=== PATIENT | female | born 2000 | race Caucasian/White ===

== ENCOUNTER → 2021-02-05 13:45 | Outpatient (CLI) | payer OTHER, SELFPAY ==
--- NOTE | ~2021-02-05 | US_ITS ---
US OB transvaginal DATE: 02/05/2021 14:54 INDICATION: Estimated gestational age determination TECHNIQUE: Real-time imaging and Doppler analysis COMPARISON: None FINDINGS: The uterus measures 9.7 times height, 5.1 cm anteroposterior and 6.7 cm transverse dimensio n. A normally shaped intrauterine gestational sac is identified with identification of yolk sac, feta l pole and cardiac motion, heart rate 164 bpm. Right ovary measures 3 x 2.8 x 2.2 cm. Left ovary measures 2.8 x 1.9 x 2.3 cm. No pelvic mass lesion or abnormal pelvic fluid collection is detected. [place]-rump length measurement is 1.71 cm with estimated gestational age of 8 weeks 1 day +/- 5 days; YENNIFER of 09/16/2021. IMPRESSION: Estimated gestational age of 8 weeks 1 day +/- 5 days; YENNIFER: 09/16/2021 Reviewed, dictated and finalized at [facility]. Reviewed, dictated and finalized at location A. IMPRESSION: Estimated gestational age of 8 weeks 1 day +/- 5 days; YENNIFER: 09/17/19 22
== END ==
PROVIDERS: PCP Physician Assistant; Visit Provider Physician Assistant
DX: N91.2 Amenorrhea, unspecified (principal); Z3A.08 8 weeks gestation of pregnancy
CPT/HCPCS: 76817

== ENCOUNTER → 2021-04-14 09:39 | Outpatient (CLI) | payer OTHER, SELFPAY ==
--- NOTE | ~2021-04-14 | US_ITS ---
EXAMINATION: US OB /maternal detail EXAM DATE: 04/14/2021 10:26 INDICATION: Anatomy 2nd trimester. TECHNIQUE: Pelvic obstetrical transabdominal sonogram was performed by a technologist. There are mu ltiple grayscale and Doppler images available for interpretation. Comparison is made to prior examina tion from 02/05/2021. FINDINGS: There is a single fetus identified in breech presentation with a heart rate of 146 beats p er minute. The placenta is located in the anterior position. There is no sonographic evidence of ret roplacental hemorrhage identified. There is subjectively expected amount of amniotic fluid. Placenta l margin to internal cervical os distance is 5.8 cm. BIOMETRIC DATA: Biparietal diameter (BPD): 4.1 cm ----------------> 18 weeks 4 days. Head circumference (HC): 15.4 cm ----------------> 18 weeks 2 days. Abdominal circumference (AC): 13.2 cm ----------> 18 weeks 5 days. Femur length (FL): 2.5 cm --------------------------> 17 weeks 4 days. These measurements are concordant. HC/AC ratio is 1.16 (The 5th -- 95th percentile range is 1.08-1.27. Estimated weight is 228 g +/- 34 g. This is the 66th percentile when the currently reported cl inical gestation age 17 weeks 6 days, clinical estimated date of delivery (YENNIFER-OPE) 09/16/2021 is used . estimated gestational age based on measurements from this exam is 18 weeks 2 days, with an es timated date of delivery (YENNIFER-AUA) 09/13. ANATOMIC SURVEY: The following anatomy is identified and is sonographically normal in appearance: Cerebral ventricles Cavum septum pellucidum Cerebellum Cisterna magna Nuchal fold CTL-spine Four-chamber heart Cardiac outflow tracts Diaphragm Stomach Kidneys Bladder Three-vessel cord Cord insertion Extremities Nose/lips IMPRESSION: 1. Single fetus in breech presentation with heart rate 146 beats per minute. 2. Estimated weight of 228 grams, 66th percentile using the currently reported clinical gestat ion age of 17 weeks 6 days, YENNIFER(OPE) 09/16. 3. Normal anatomic survey. Reviewed, dictated and finalized at location A. MACHINE OPERATOR IMPRESSION: 1. Single fetus in breech presentation with heart rate 146 beats per minute. 2. Estimated weight of 228 grams, 66th percentile using the currently re ported clinical gestation age of 17 weeks 6 days, YENNIFER(OPE) 09/16. 3. Normal anatomic survey.
== END ==
PROVIDERS: Visit Provider Obstetrics & Gynecology Gynecology
DX: Z34.92 Encounter for supervision of normal pregnancy, unspecified, second trimester (principal); Z3A.18 18 weeks gestation of pregnancy
CPT/HCPCS: 76805

== ENCOUNTER 2021-06-23 11:15 | Observation (INO) | payer OTHER, SELFPAY ==
[2021-06-23 11:41] VITALS: BP 125/83; PULSE 104
[2021-06-23 12:00] VITALS: TEMP 36.6; BMI 33.5
[2021-06-23 12:01] VITALS: BP 118/77; PULSE 88
[2021-06-23 12:05] LABS: Add Urine Microscopic? YES; Appearance Urine Cloudy (Clear); Bacteria Urine Trace /hpf; Bilirubin Urine Negative (Negative); Blood Urine 1+ (Negative); Color Urine Yellow (Yellow); Glucose Urine UA Negative (Negative); Ketones Urine Negative (Negative); Leukocyte Esterase Ur 3+ LEU/UL (NEGATIVE); Mucus Urine Rare /lpf; Nitrate Urine Negative (Negative); Protein Urine Negative (Negative); Specific Grav Ur 1.012 (1.001-1.035); Squamous Epithelial Cell Urine Many /hpf (Few); Urobilinogen Urine Negative mg/dL (<2.0); WBC Urine >75 /hpf (0-3)
--- NOTE | 2021-06-29 09:32 | PM.OBTRLD ---
OB - Triage/Final Diagnosis Visit Information Reason for evaluation: other (Vaginal pressure) Comments/Additional reasons for admission: I have assessed the risk for this patient, Kisha Mcallister, and determined that she would benefit from observation care. Evaluation Laboratory results: Laboratory Tests 06/23/21 11:42 Urine Color Yellow Urine Appearance Cloudy H Urine pH 6.0 Ur Specific [place] 1.012 Urine Protein Negative Urine Glucose (UA) Negative Urine Ketones Negative Ur Blood (Man) 1+ H Urine Nitrate Negative Urine Bilirubin Negative Urine Urobilinogen Negative Ur Leukocyte Esterase 3+ H Urine RBC 6-10 H Urine WBC >75 H Ur Squamous Epith Cells Many H Urine Bacteria Trace Urine Mucus Rare
== END 2021-06-23 12:35 | disposition home or self-care (01) ==
PROVIDERS: Admitting Provider Obstetrics & Gynecology Gynecology; PCP Physician Assistant; Visit Provider Obstetrics & Gynecology Gynecology
DX: O26.893 Other specified pregnancy related conditions, third trimester (principal); R10.2 Pelvic and perineal pain; Z3A.27 27 weeks gestation of pregnancy
CPT/HCPCS: 81001; 87086; G0378; G0379

== ENCOUNTER 2021-08-06 13:50 | Observation (INO) | payer OTHER, SELFPAY ==
[2021-08-06 14:12] VITALS: BP 117/71; PULSE 96; TEMP 37.3
[2021-08-06 14:16] VITALS: BP 126/86; PULSE 94
[2021-08-06 14:31] VITALS: BP 116/75; PULSE 77
[2021-08-06 14:46] VITALS: BP 120/78; PULSE 86
--- NOTE | 2021-08-06 14:52 | OBADM ---
This patient, Kisha Mcallister, admitted to the OB room OB Post 116 for observation. Patient/family oriented to hospital policies and general routines including ID bracelet, bed and alarms, visiting hours, pain management, procedures, bathroom and other care routines, personal items, smoking policy, room service/diet, and visiting hours. Patient/Family are encouraged to report perceived risks to care and to ask questions if they do not understand what they are told or what they should do. Pt. reports ctxns and vaginal discharge, states she has had cultures taken in MD office earlier this week.
--- NOTE | 2021-08-06 15:25 | PC.NURSE ---
5750--Dr. Fang on unit, strip reviewed and report re: pt's reports of ctxns and back pain and discharge. Pt. stated that vaginal cultures were taken in the office earlier this week, and no active discharge noted upon exam. Orders to DC home.
--- NOTE | 2021-08-17 07:51 | PM.OBTRLD ---
OB - Triage/Final Diagnosis Visit Information Reason for evaluation: threatened labor Comments/Additional reasons for admission: I have assessed the risk for this patient, Kisha Mcallister, and determined that she would benefit from observation care.
== END 2021-08-06 15:07 | disposition home or self-care (01) ==
PROVIDERS: Admitting Provider Obstetrics & Gynecology Gynecology; PCP Physician Assistant; Visit Provider Obstetrics & Gynecology Gynecology
DX: O47.03 False labor before 37 completed weeks of gestation, third trimester (principal); Z3A.34 34 weeks gestation of pregnancy
CPT/HCPCS: G0378; G0379

== ENCOUNTER 2021-08-31 12:21 | Outpatient (RCR) | payer OTHER, SELFPAY ==
[2021-07-23 09:41] VITALS: BP 108/69; PULSE 101
[2021-07-23 09:57] VITALS: BP 108/69; PULSE 87
[2021-07-27 11:50] VITALS: BP 106/67; PULSE 97
[2021-07-30 09:20] VITALS: PULSE 86
[2021-08-03 16:00] VITALS: BP 115/69; PULSE 99
[2021-08-10 17:32] VITALS: BP 121/78; PULSE 106
[2021-08-13 10:11] VITALS: BP 117/77; PULSE 89
[2021-08-17 13:16] VITALS: BP 117/77; PULSE 92
[2021-08-20 14:18] VITALS: BP 118/82; PULSE 100
[2021-08-24 13:16] VITALS: BP 115/80
[2021-08-27 17:26] VITALS: BP 124/79
--- NOTE | ~2021-08-31 | US_ITS ---
EXAMINATION: US OB follow up DATE: 08/17/2021 12:53 INDICATION: Gestational diabetes, third trimester TECHNIQUE: Real-time ultrasound of the pelvis was performed. The interpreting radiologist was not pre sent for the study. COMPARISON: None. FINDINGS: There is a single living fetus in vertex presentation. The placenta is anterior. Multiple v enous lakes are noted within the placenta. cardiac activity and movement are noted. heart rate is 136 beats per minute (bpm). The amniotic fluid index is 13.2 cm which is normal (allen l range: 7.7 cm to 24.9 cm). The following biometric data were obtained: Biparietal diameter (BPD): 9.3 cm; head circumference (HC): 34.8 cm; abdominal circumference (AC): 35 .1 cm; femur length (FL): 7.5 cm. These measurements are concordant. Estimated weight is 3635 g +/- 545 g, which correlates with the >97th percentile when 09/16/2021 is used as estimated date of delivery. As single measurements, these parameters are each equal to the following estimated gestational ages w ith ranges of +/- 2 standard deviations: BPD: 37 weeks 6 days +/- 3 weeks 1 days. HC: 40 weeks 3 days +/- 2 weeks 5 days. AC: 39 weeks 0 days +/- 3 weeks 0 days. FL: 38 weeks 4 days +/- 3 weeks 1 days. estimated gestational age based solely on measurements from this exam is 39 weeks 0 days +/- 2 weeks 5 days. IMPRESSION: 1. Single living fetus in vertex presentation. 2. Normal amniotic fluid index. 3. Estimated weight is 3635 g +/- 545 g, which correlates with the >97th percentile when 022 is used as estimated date of delivery. Reviewed, dictated and finalized at location A. IMPRESSION: 1. Single living fetus in vertex presentation. 2. Normal amniotic fluid index. 3. Estimated weight is 3635 g +/- 545 g, which correlates with the >97th percentile when 09/16/2021 is used as estimated date of delivery.
[2021-08-31 13:01] VITALS: BP 125/84; PULSE 109
== END 2021-09-11 10:20 | disposition home or self-care (01) ==
LOC: ANHOBOP 12:21
PROVIDERS: PCP Physician Assistant; Visit Provider Obstetrics & Gynecology Gynecology
DX: O24.419 Gestational diabetes mellitus in pregnancy, unspecified control (principal); Z3A.32 32 weeks gestation of pregnancy; Z3A.33 33 weeks gestation of pregnancy; Z3A.34 34 weeks gestation of pregnancy; Z3A.35 35 weeks gestation of pregnancy; Z3A.36 36 weeks gestation of pregnancy; Z3A.37 37 weeks gestation of pregnancy
CPT/HCPCS: 59025; 76816

== ENCOUNTER 2021-09-01 12:42 | Inpatient (IN) | payer OTHER, SELFPAY ==
[2021-09-01] VITALS (121 sets, daily range): BP systolic 95–165; BP diastolic 49–114; PULSE 66–150; TEMP 36.3–36.6; O2SAT 94–100; BMI 35.2
[2021-09-01] MEDS: ACETAMINOPHEN 500 MG TABLET 1000 MG PO (11:51)
[2021-09-01 11:53] LABS: Basophils Percent Auto 0.4 % (0.2-1.2); Eosinophils Absolute Auto 0.1 K/mm3 (0-0.3); Eosinophils Percent Auto 0.8 % (0-4.4); Hematocrit 34.2 % (37.0-47.0); Hemoglobin 10.9 g/dL (12.0-15.0); Immature Granulocyte Absolute 0.07 K/mm3 (0.00-0.031); Immature Granulocyte Percent A 0.6 % (0-0.5); Lymphocytes Absolute Auto 1.58 K/mm3 (0.9-3.2); Lymphocytes Percent Auto 14.1 % (18.3-44.2); Mean Corpuscular HGB Conc 31.9 g/dl (32-36); Mean Corpuscular Volume 87.9 fl (80-100); Mean Platelet Volume 10.8 fl (7.4-10.4); Monocytes Absolute Auto 0.6 K/mm3 (0.1-0.6); Monocytes Percent Auto 4.9 % (2.6-8.5); Neutrophils Absolute Auto 8.9 K/mm3 (1.3-6.7); Neutrophils Percent Auto 79.2 % (45.5-73.1); Platelet Count Result 204 k/mm3 (150-375); Red Blood Count 3.89 M/mm3 (4.2-5.4); Red Cell Distribution Width 14.2 % (11.5-14.5); White Blood Count 11.2 K/mm3 (4.5-10.0)
[2021-09-01 12:00] LABS: Creatinine Urine 113.5 mg/dL; Total Protein Urine Random 15 mg/dL; Ur Ttl Prot Creatinine Ratio 0.13 mg/mg (0-0.20)
[2021-09-01 12:03] LABS: Alanine Aminotransferase 13 U/L (6-35); Albumin Level 3.6 g/dL (3.5-5.1); Alkaline Phosphatase 159 U/L (38-126); Anion Gap 5 mmol/L (8-16); Aspartate Amino Transferase 19 U/L (14-36); Bilirubin,Total 0.2 mg/dL (0.2-1.3); Blood Urea Nitrogen 6 mg/dL (7-17); Calcium 8.5 mg/dL (8.4-10.2); Carbon Dioxide 19 mmol/L (22-30); Chloride 110 mmol/L (98-107); Estimated Glomerular Filt Rate > 60; Glucose 107 mg/dL (65-110); Potassium 3.9 mmol/L (3.4-5.0); Sodium 134 mmol/L (137-145); Uric Acid 5.3 mg/dL (2.5-7.5)
[2021-09-01 12:31] LABS: Appearance Urine Slightly Cloudy (Clear); Bilirubin Urine Negative (Negative); Blood Urine 2+ (Negative); Color Urine Yellow (Yellow); Glucose Urine UA Negative (Negative); Ketones Urine Negative (Negative); Leukocyte Esterase Ur Trace LEU/UL (NEGATIVE); Nitrate Urine Negative (Negative); Protein Urine Trace mg/dL (Negative); Urobilinogen Urine 0.2 mg/dL (<2.0)
--- NOTE | 2021-09-01 12:42 | LDADM ---
This patient, Kisha Mcallister, was admitted to Labor/Delivery/Recovery 103 on 09/01/21 at 12:42. Plans for labor, pain management and were discussed with patient. Patient/family oriented to hospital policies and general routines including ID bracelet, bed and alarms, visiting hours, pain management, procedures, bathroom and other care routines, personal items, smoking policy, room service/diet and guest tray routines, infant security routines, and visiting hours. Patient/Family are encouraged to report perceived risks to care and to ask questions if they do not understand what they are told or what they should do. See OBIX for further documentation.
--- NOTE | 2021-09-01 12:42 | PC.NURSE ---
Labs and VS called to [facility]. Orders received for pt to stay and be induced for Gestational Hypertension. Orders received for pt to be started on Cervidil and start on Pitocin in the AM.
[2021-09-01 12:48] LABS: Mucus Urine Rare /lpf; RBC Urine >75 /hpf (0-2); Squamous Epithelial Cell Urine Few /hpf (Few)
[2021-09-01 12:49] LABS: Add Urine Microscopic? YES
[2021-09-01] MEDS: DINOPROSTONE 10 MG VAG INSERT VAGINAL (13:55)
[2021-09-01] MEDS: ONDANSETRON INJ 4 MG/2 ML VIAL IV PUSH ×2 (14:32→21:01)
[2021-09-01] MEDS: LACTATED RINGERS 1,000 ML 125 ML IV CONT ×2 (14:44→17:38)
[2021-09-01] MEDS: fentaNYL CITRATE INJ (*CRX) 100 MCG/2 ML VIAL 50 MCG IV PUSH (15:22)
[2021-09-01 16:09] LABS: Glucose Point of Care 73 mg/dl (65-105)
--- NOTE | 2021-09-01 17:00 | WPDANESEPPF ---
Anes - Initial Pre Proc Eval Procedure: labor epidural Date/Time: 09/01/21 17:00 Surgeon: Rylie Fang MD Pre Op Diagnosis: labor pain Pre Op Diagnosis: PIH Labs Patient Data Age: 21 Gender: F Height: 1.75 m Weight: 108 kg Last Vital Signs Temp 36.3 C L 09/01/21 13:30 Pulse 106 H 09/01/21 16:00 BP 141/102 H 09/01/21 16:00 Allergies Allergy/AdvReac Type Severity Reaction Status Date / Time No Known Allergies Allergy Verified 07/23/21 09:43 Home Medications Medication Instructions Recorded Confirmed Type aspirin 81 mg capsule 81 mg PO DAILY 07/23/21 09/01/21 History ergocalciferol (vitamin D2) 1,250 50,000 unit PO WEEKLY 07/23/21 09/01/21 History mcg (50,000 unit) capsule insulin NPH isoph U-100 human 100 49 unit subcut HS 07/23/21 09/01/21 History unit/mL (3 mL) subcutaneous pen (Novolin N Flexpen) insulin lispro 100 unit/mL 5 unit subcut QACBREAK 07/23/21 09/01/21 History subcutaneous pen omeprazole 40 mg capsule,delayed 40 mg PO HS 07/23/21 09/01/21 History release vit no.95-ferrous 1 tablet PO DAILY 07/23/21 09/01/21 History fumarate 28 mg-folic acid 800 mcg tablet () Laboratory Tests 09/01/21 09/01/21 09/01/21 11:38 11:38 11:38 WBC 11.2 K/mm3 H K/mm3 (4.5-10.0) RBC 3.89 M/mm3 L M/mm3 (4.2-5.4) Hgb 10.9 g/dL L g/dL (12.0-15.0) Hct 34.2 % L % (37.0-47.0) MCV 87.9 fl fl (80-100) MCH 28.0 pg pg (26-34) MCHC 31.9 g/dl L g/dl (32-36) RDW 14.2 % % (11.5-14.5) Plt Count 204 k/mm3 k/mm3 (150-375) MPV 10.8 fl H fl (7.4-10.4) Immature Gran % (Auto) 0.6 % H % (0-0.5) Neut % (Auto) 79.2 % H % (45.5-73.1) Lymph % (Auto) 14.1 % L % (18.3-44.2) [place] % (Auto) 4.9 % % (2.6-8.5) Eos % (Auto) 0.8 % % (0-4.4) Baso % (Auto) 0.4 % % (0.2-1.2) Lymph # (Auto) 1.58 K/mm3 K/mm3 (0.9-3.2) [place] # (Auto) 0.6 K/mm3 K/mm3 (0.1-0.6) Eos # (Auto) 0.1 K/mm3 K/mm3 (0-0.3) Baso # (Auto) 0.0 K/mm3 K/mm3 (0.0-0.1) Abs Immat Gran (auto) 0.07 K/mm3 H K/mm3 (0.00-0.031) Absolute Neuts (auto) 8.9 K/mm3 H K/mm3 (1.3-6.7) Absolute Nucleated RBC 0.0 K/mm3 K/mm3 (0.0-0.012) Nucleated RBC % 0.0 % % (0.0-0.2) Sodium Potassium Chloride Carbon Dioxide Anion Gap BUN Creatinine Estim Creat Clear Calc Estimated GFR Glucose POC Capillary Glucose Uric Acid Calcium Total Bilirubin AST ALT Alkaline Phosphatase Total Protein Albumin Urine Color Yellow (Yellow) Urine Appearance Slightly cloudy (Clear) Urine pH 6.0 (5.0-9.0) Ur Specific [place] 1.020 (1.001-1.035) Urine Protein Trace mg/dL mg/dL (Negative) Urine Glucose (UA) Negative mg/dL mg/dL (Negative) Urine Ketones Negative mg/dL mg/dL (Negative) Ur Blood (Man) 2+ H (Negative) Urine Nitrate Negative (Negative) Urine Bilirubin Negative (Negative) Urine Urobilinogen 0.2 mg/dL mg/dL (<2.0) Ur Leukocyte Esterase Trace BRIAN/UL H BRIAN/UL (NEGATIVE) Urine RBC >75 /hpf H /hpf (0-2) Urine WBC 7-9 /hpf H /hpf (0-3) Ur Squamous Epith Cells Few /hpf /hpf (Few) Urine Mucus Rare /lpf /lpf U Random Total Protein 15 mg/dL mg/dL Urine Creatinine 113.5 mg/dL mg/dL Protein/Creat Ratio 2 0.13 mg/mg mg/mg (0-0.20) RPR Blood Type Antibody Screen 09/01/21 09/01/21 09/01/21
--- NOTE | 2021-09-01 17:18 | WPDOBADMIT ---
Obstetrics - Admit Note Admission Note: record reviewed. No pertinent additions to the history and/or any subsequent changes in the physical findings that are not consistent with the expected course of the were found. Additions to the history and/or subsequent changes in the physical findings follow. GHTN.
--- NOTE | 2021-09-01 17:19 | PM.OBPNLAB ---
Pain Control Date/time seen: 09/01/21 17:04 Comments: Grimacing and breathing through contractions. She reports having some bright red bleeding when using the bathroom. SVE attempted. Cervix is lower in station than previously examined in the office. Pt unable to tolerate remainder of exam and asked to stop. Exam stopped immediately. Smear of red blood present on glove. No active or BRB. Discussed plan of care. Pt with irregular contractions at this time. Recommend starting pitocin and AROM. Discussed risks and benefits of AROM. Kisha agrees to procedure but desires epidural placement first. Pelvic Exam Amniotic membrane status: Intact Contractions Monitor mode: External Contraction pattern: Irregular Contraction phase: Resting Contraction intensity: Moderate Assessment and Plan Comments: Will start pitocin after epidural placement.
--- NOTE | 2021-09-01 18:01 | PM.OBPNLAB ---
Pain Control Date/time seen: 09/01/21 18:01 Pain control: epidural Comments: Comfortable. Having some left hip pain. Assisted with repositioning to right runners position. Pelvic Exam Dilation (cm): 4 Effacement (%): 75 station: -2 Amniotic membrane status: Ruptured (AROM. Small amount of clear amniotic fluid returned. Bloody show small, WNL. ) Contractions Monitor mode: External Contraction frequency: 3 (2-3 minutes) Contraction pattern: Regular Contraction phase: Resting Contraction intensity: Moderate Status status: Category l Assessment and Plan Plan: continuous present management Comments: At next exam, if no cervical change plan to start oxytocin. Otherwise anticipate vaginal .
[2021-09-01 18:30] LABS: Glucose Point of Care 69 mg/dl (65-105)
[2021-09-01] MEDS: DEXTROSE 5%/LACTATED RINGERS 1,000 ML 125 ML IV CONT (20:34)
[2021-09-01 20:35] LABS: Glucose Point of Care 61 mg/dl (65-105)
[2021-09-01 21:51] LABS: Glucose Point of Care 106 mg/dl (65-105)
[2021-09-01] MEDS: CALCIUM CARBONATE (TUMS) 500 MG (200 MG ELEMENTAL) PO (22:30)
[2021-09-01] MEDS: OXYTOCIN 30 UNITS/NS 500 ML 30 UNITS/500 ML BAG IV CONT (23:43)
[2021-09-01 23:51] LABS: Glucose Point of Care 82 mg/dl (65-105)
[2021-09-02] VITALS (82 sets, daily range): BP systolic 71–156; BP diastolic 52–112; PULSE 65–143; RESP 16–18; TEMP 36.6–37.1; O2SAT 84–100
[2021-09-02 01:41] LABS: Glucose Point of Care 74 mg/dl (65-105)
[2021-09-02 03:29] LABS: Glucose Point of Care 79 mg/dl (65-105)
[2021-09-02 06:18] LABS: Glucose Point of Care 86 mg/dl (65-105)
[2021-09-02] MEDS: DEXTROSE 5%/LACTATED RINGERS 1,000 ML 125 ML IV CONT (06:20)
[2021-09-02] MEDS: ONDANSETRON INJ 4 MG/2 ML VIAL IV PUSH (06:48)
[2021-09-02] MEDS: OXYTOCIN 30 UNITS/NS 500 ML 30 UNITS/500 ML BAG 125 UNITS IV CONT (07:39)
--- NOTE | 2021-09-02 07:58 | PM.OBPRVD ---
OB - Delivery Note Procedure Delivery date: 09/02/21 Procedure: Events: Gestational Diabetes (GDMA2) and Gestational Hypertension Induction method: AROM and Per Cervidil Protocol Delivery augmentation: Rupture of Membranes Delivery monitor: External FHT and External Uterine Route of delivery: Episiotomy description: None Laceration Description: Vaginal (2 1st degree vaginal lacerations, left and right side. ) Delivery repair: vicryl Specimen: Yes Quantitative Blood Loss (ml): 300 Anesthesia type: Epidural Disposition: Floor Narrative: of viable female . Pt progressed to complete and pushed with contractions. She delivered in the left tilt position. The head came slowly to a crown and delivered. There was good restitution of the head and spontaneous delivery of the remainder of the . Baby Date of : 09/16/21 Time of : 07:07 Weeks of gestation at delivery: 38 Infant gender: Female Weight (pounds): 7 Weight (ounces): 14 presentation: vertex position: Right Occiput Anterior Placenta delivery description: Spontaneous Cord Vessel Description: 3 Vessels and Delayed Cord Clamping score one minute: 8 score five minutes: 9
--- NOTE | 2021-09-02 08:01 | PM.DS ---
DS: Admitting Diagnosis Discharge Date 09/04/21 Admitting Diagnosis IUP at 37w6d GDMA2 gHTN DS: Discharge Diagnosis Discharge Diagnosis Plan IUP DS: Summary Hospital Course Reason for hospitalization: Hospital Course: uncomplicated . Status at Discharge Functional status at discharge: independent ambulation Time Spent with Patient Time attestation: Total time spent providing and/or coordinating discharge services: Exam Narrative: Alert and oriented. Mood is pleasant and cooperative. Urinating without difficulty. Denies passing any large clots. Perineum with minimal edema. Const: General: comfortable Limitations: no limitations Resp: Effort & Inspection: normal respiratory effort Auscultation: clear to auscultation bilaterally Cardio: Rate: regular rate GI: Inspection: normal to inspection : Other: Lochia small, no clots. Fundus firm and below umbilicus. Minimal perineal edema. Urinary Catheter: Urinary Catheter: urine clear Skin: General skin exam: normal color Extrem: General: normal to inspection Psych: Appearance: grossly normal Mental Status: mental status grossly normal Affect: normal affect Thought process: Normal thought process present Other: Discussed hx PTSD and medication use. Pt desires to resume duloxetine. Will Rx on DC DS: Data Data Completed and Pending Pending studies at discharge: Pending at discharge 09/02/21 07:12 Surgical [PTH] Routine Labs on day of discharge: Labs from last 24 hours 09/02/21 09/02/21 09/02/21 06:14 03:25 01:37 WBC RBC Hgb Hct MCV MCH MCHC RDW Plt Count MPV Immature Gran % (Auto) Neut % (Auto) Lymph % (Auto) [place] % (Auto) Eos % (Auto) Baso % (Auto) Lymph # (Auto) [place] # (Auto) Eos # (Auto) Baso # (Auto) Abs Immat Gran (auto) Absolute Neuts (auto) Absolute Nucleated RBC Nucleated RBC % Sodium Potassium Chloride Carbon Dioxide Anion Gap BUN Creatinine Estim Creat Clear Calc Estimated GFR Glucose POC Capillary Glucose 86 79 74 Uric Acid Calcium Total Bilirubin AST ALT Alkaline Phosphatase Total Protein Albumin Urine Color Urine Appearance Urine pH Ur Specific [place] Urine Protein Urine Glucose (UA) Urine Ketones Ur Blood (Man) Urine Nitrate Urine Bilirubin Urine Urobilinogen Ur Leukocyte Esterase Urine RBC Urine WBC Ur Squamous Epith Cells Urine Mucus U Random Total Protein Urine Creatinine Protein/Creat Ratio 2 RPR Blood Type Antibody Screen 09/01/21 09/01/21 09/01/21 23:42 21:42 20:33 WBC RBC Hgb Hct MCV MCH MCHC RDW Plt Count MPV Immature Gran % (Auto) Neut % (Auto) Lymph % (Auto) [place] % (Auto) Eos % (Auto) Baso % (Auto) Lymph # (Auto) [place] # (Auto) Eos # (Auto) Baso # (Auto) Abs Immat Gran (auto) Absolute Neuts (auto) Absolute Nucleated RBC Nucleated RBC % Sodium Potassium Chloride Carbon Dioxide Anion Gap BUN Creatinine Estim Creat Clear Calc Estimated GFR Glucose POC Capillary Glucose 82 106 H 61 L Uric Acid Calcium Total Bilirubin AST ALT Alkaline Phosphatase Total Protein Albumin Urine Color Urine Appearance Urine pH Ur Specific [place] Urine Protein Urine Glucose (UA) Urine Ketones Ur Blood (Man) Urine Nitrate Urine Bilirubin Urine Urobilinogen Ur Leukocyte Esterase Urine RBC Urine WBC Ur Squamous Epith Cells Urine Mucus U Random Total Protein Urine Creatinine Protein/Creat Ratio 2 RPR Blood Type Antibody Screen 09/01/21 09/01/21 09/01/21 18:28 16:06 13:47 WBC RBC Hgb Hct MCV MCH MCHC RDW Plt Count
[2021-09-02] MEDS: IBUPROFEN 600 MG TABLET (10:05)
[2021-09-02] MEDS: WITCH HAZEL 40 PADS 1 PAD (10:05)
[2021-09-02] MEDS: LIDOCAINE HCL 1% LOCAL INJ 10 ML VIAL (10:38)
[2021-09-02] MEDS: BENZOCAINE 20% AER SPR (*SP) 56 GM CAN 1 SPRAY (10:38)
--- NOTE | 2021-09-02 10:56 | OBPPTRN ---
Patient transferred to post room#286 via ( wheelchair ). Support person present. Oriented to unit, room, information board, rooming in, admission packet and security measures. Patient verbalizes understanding.
[2021-09-02 11:32] LABS: Rapid Plasma Reagin Non-Reactive (NonReactive)
--- NOTE | 2021-09-02 14:04 | PC.NURSE ---
1100 - 1135 Introductions were made. Mother works well with her infant with encouragement and education. Encouraged understanding of the benefits of skin to skin (unwrapping infant and placing vertically on her chest), responsive feeding and how to watch for early feeding signs, frequency of feeding on demand about every 8-12 times in 24 hours (every 2-3 hours), milk production, duration of feeding, signs of adequate intake/output and how to record on the feeding sheet. Resources used to facilitate learning were used with the mom and baby guide. Breast pump provided due to ineffective . Instructions given on cleaning, care, usage, there should be no pain, pumping schedule 8 times in 24 hours with 1-2 times at night for milk production, collection, and storage of human milk. Parents are encouraged to record pumping schedule on the feeding sheet. Patient was assessed for correct placement, flange size, to pump for comfort and nipple stretching/stimulation for adequate milk production. At 1130 3 mls of colostrum was syringe fed to infant by RN. Mother voiced understanding of the education shared. Reported to the primary RN.
[2021-09-02] MEDS: DOCUSATE SODIUM 100 MG CAPSULE PO (15:33)
[2021-09-02] MEDS: IBUPROFEN 600 MG TABLET PO ×2 (15:33→21:14)
[2021-09-02] MEDS: ACETAMINOPHEN 325 MG TABLET 650 MG PO (21:14)
[2021-09-02] MEDS: PANTOPRAZOLE 40 MG TABLET PO (21:14)
[2021-09-03 03:30] VITALS: BP 111/72; PULSE 80; RESP 18; TEMP 36.9
[2021-09-03] MEDS: IBUPROFEN 600 MG TABLET PO ×3 (03:36→17:20)
[2021-09-03] MEDS: ACETAMINOPHEN 325 MG TABLET 650 MG PO ×2 (03:37→20:02)
--- NOTE | 2021-09-03 05:00 | PC.NURSE ---
Blood sugar 72.
[2021-09-03 05:22] LABS: Hematocrit 27.9 % (37.0-47.0); Hemoglobin 8.7 g/dL (12.0-15.0)
[2021-09-03 05:44] LABS: Glucose 72 mg/dL (65-110)
--- NOTE | 2021-09-03 07:29 | PM.OBPNVD ---
OB - PN: Subj Subjective Date/time seen: 09/03/21 07:29 Patient comments: no complaints and pain well controlled baby status: doing well OB - PN: Obj Data Labs CBC & Chem 7: 09/03/21 03:12 09/03/21 03:12 Labs: Laboratory Results - last 24 hr 09/01/21 09/03/21 09/03/21 13:47 03:12 03:12 Hgb 8.7 L Hct 27.9 L Glucose 72 RPR Non-reactive OB - PN A/P Plan day: 1 Plan: routine care Time Spent With Patient Time: Total time spent is greater than 50% in coordination of care (as documented) at patient's floor/unit and/or counseling patient: Exam : Bimanual exam- vagina & uterus: other (Uterus firm, nt @U)
[2021-09-03 09:05] VITALS: BP 123/85; PULSE 90; RESP 16; TEMP 36.3; O2SAT 97
--- NOTE | 2021-09-03 09:24 | WPDANESPN ---
Anes - Prog Note Post-Op Date/Time: 09/03/21 09:24 Cardiovascular status: normal Respiratory status: normal Airway patency: baseline Mental status: baseline Post-Op hydration status: normal Vital Signs: Last Vital Signs Temp 36.9 C 09/03/21 03:30 Pulse 80 09/03/21 03:30 Resp 18 09/03/21 03:30 BP 111/72 09/03/21 03:30 Pulse Ox 98 09/02/21 17:00 O2 Del Method Room Air 09/03/21 03:30 Pain Score (VAS): 04/13 I/O: Intake & Output 09/02/21 09/03/21 09/03/21 23:59 07:59 15:59 Intake Total 480 1200 Output Total 800 Balance 480 400 Laboratory Tests 09/03/21 03:12 09/03/21 03:12 09/01/21 09/03/21 09/03/21 13:47 03:12 03:12 Hgb 8.7 L Hct 27.9 L Glucose 72 RPR Non-reactive Microbiology 09/01/21 11:38 Clean Catch Midstream Urine Culture - Final Post-procedural complaints: none Patient Feedback: Patient satisfied with anesthetic care.
[2021-09-03] MEDS: POLYSACCHARIDE IRON COMPLEX 150 MG CAPSULE PO ×2 (10:38→17:20)
[2021-09-03] MEDS: DOCUSATE SODIUM 100 MG CAPSULE PO ×2 (10:38→17:20)
[2021-09-03] MEDS: MULTIVIT/MIN/PREN/FOL AC/IRON TABLET 1 TAB PO (10:40)
[2021-09-03 19:00] VITALS: BP 135/90; PULSE 84; RESP 18; TEMP 36.8
[2021-09-03] MEDS: PANTOPRAZOLE 40 MG TABLET PO (21:28)
[2021-09-03 23:30] VITALS: BP 120/65; PULSE 71; RESP 18; TEMP 36.6
[2021-09-04 03:45] VITALS: BP 125/82; PULSE 85; RESP 18; TEMP 36.6
[2021-09-04 07:25] VITALS: BP 116/73; PULSE 81; RESP 18; TEMP 37; O2SAT 99
--- NOTE | 2021-09-04 07:50 | PM.OBPNVD ---
OB - PN: Subj Subjective Date/time seen: 09/04/21 07:40 Patient comments: pain well controlled [place] baby status: doing well feeding status: pumping and bottle feeding OB - PN: Obj Data Labs CBC & Chem 7: 09/03/21 03:12 09/03/21 03:12 OB - PN A/P Time Spent With Patient Time: Total time spent is greater than 50% in coordination of care (as documented) at patient's floor/unit and/or counseling patient: Review of Systems Review of Systems: All systems reviewed & are unremarkable except as noted in HPI and below Constitutional: Constitutional: Reports no additional constitutional complaints Genitourinary: Comments: Urinating without difficulty. Exam Narrative: Alert and oriented. Mood is pleasant and cooperative. Urinating without difficulty. Denies passing any large clots. Perineum with minimal edema. Const: General: cooperative and comfortable Orientation/consciousness: patient oriented x3 Limitations: no limitations Resp: Effort & Inspection: normal respiratory effort Auscultation: clear to auscultation bilaterally Cardio: Rate: regular rate GI: Inspection: normal to inspection Extrem: General: normal to inspection Psych: Appearance: grossly normal Mental Status: mental status grossly normal Affect: normal affect Thought process: Normal thought process present
[2021-09-04] MEDS: DOCUSATE SODIUM 100 MG CAPSULE PO (10:05)
[2021-09-04] MEDS: POLYSACCHARIDE IRON COMPLEX 150 MG CAPSULE PO (10:05)
[2021-09-04] MEDS: MULTIVIT/MIN/PREN/FOL AC/IRON TABLET 1 TAB PO (10:05)
--- NOTE | 2021-09-04 10:46 | PC.NURSE ---
Patient viewed the discharge video Mother & Baby Care, The First Two Weeks . Patient was given the opportunity and encouraged to ask questions. Patient verbalized understanding of information shared and has been given the mother/baby guide for home reference.
[2021-09-05 11:08] VITALS: BP 137/90; PULSE 101; RESP 20; TEMP 38.1; O2SAT 98
== END 2021-09-04 11:05 | disposition home or self-care (01) | DRG 807 ==
LOC: ANHLDR 13:02 → ANHOB2 09-02 10:43
PROVIDERS: Advanced Practice Midwife; Admitting Provider Obstetrics & Gynecology Gynecology; PCP Physician Assistant; Visit Provider Obstetrics & Gynecology Gynecology
DX: O13.4 Gestational [pregnancy-induced] hypertension without significant proteinuria, complicating childbirth (principal); Z37.0 Single live birth; O24.429 Gestational diabetes mellitus in childbirth, unspecified control; O70.0 First degree perineal laceration during delivery; Z3A.38 38 weeks gestation of pregnancy
CPT/HCPCS: 36415; 59025; 80053; 81001; 82570; 82947; 82948; 84156; 84550; 85014; 85018; 85025; 86592; 86850; 86900; 86901; 87086; 88307; A9270; J2405; J2590; J2795; J3010; J7120; J7121

== ENCOUNTER 2021-09-05 11:57 | Outpatient (CLI) | payer OTHER, SELFPAY ==
[2021-09-05 12:54] LABS: Basophils Absolute Auto 0.1 K/mm3 (0.0-0.1); Basophils Percent Auto 0.6 % (0.2-1.2); Eosinophils Absolute Auto 0.4 K/mm3 (0-0.3); Eosinophils Percent Auto 3.1 % (0-4.4); Hematocrit 30.5 % (37.0-47.0); Hemoglobin 9.4 g/dL (12.0-15.0); Immature Granulocyte Absolute 0.22 K/mm3 (0.00-0.031); Immature Granulocyte Percent A 1.5 % (0-0.5); Lymphocytes Absolute Auto 1.62 K/mm3 (0.9-3.2); Lymphocytes Percent Auto 11.3 % (18.3-44.2); Mean Corpuscular HGB Conc 30.8 g/dl (32-36); Mean Corpuscular Hemoglobin 27.7 pg (26-34); Mean Platelet Volume 10.1 fl (7.4-10.4); Monocytes Absolute Auto 0.8 K/mm3 (0.1-0.6); Monocytes Percent Auto 5.2 % (2.6-8.5); Neutrophils Absolute Auto 11.3 K/mm3 (1.3-6.7); Neutrophils Percent Auto 78.3 % (45.5-73.1); Platelet Count Result 209 k/mm3 (150-375); Red Blood Count 3.39 M/mm3 (4.2-5.4); Red Cell Distribution Width 14.6 % (11.5-14.5); White Blood Count 14.4 K/mm3 (4.5-10.0)
[2021-09-05 12:56] LABS: Appearance Urine Clear (Clear); Bilirubin Urine Negative (Negative); Blood Urine 3+ (Negative); Color Urine Yellow (Yellow); Glucose Urine UA Negative (Negative); Ketones Urine Negative (Negative); Leukocyte Esterase Ur 1+ LEU/UL (NEGATIVE); Nitrate Urine Negative (Negative); Protein Urine Negative (Negative); Specific Grav Ur 1.015 (1.001-1.035)
[2021-09-05 13:01] LABS: Add Urine Microscopic? YES; RBC Urine >75 /hpf (0-2); Squamous Epithelial Cell Urine Rare /hpf (Few); WBC Urine 16-20 /hpf (0-3)
--- NOTE | 2021-09-05 16:15 | PC.NURSE ---
Dr Rodriguez notified of lab results, ok with results, instructed to notify pt if Temp 101 call or go to ER
== END 2021-09-05 11:58 | disposition home or self-care (01) ==
LOC: ANHOBOP 11:59
PROVIDERS: PCP Physician Assistant; Visit Provider Obstetrics & Gynecology
DX: Z00.00 Encounter for general adult medical examination without abnormal findings (principal)
CPT/HCPCS: 36415; 81001; 85025; 87086

== ENCOUNTER 2022-12-31 13:32 | Emergency (ER) | payer OTHER, SELFPAY ==
[2022-12-31 13:46] VITALS: BP 114/72; PULSE 91; RESP 16; TEMP 36.6; O2SAT 98
--- NOTE | 2022-12-31 14:36 | ED.GENADULT ---
HPI - General Adult General Chief complaint: Chest Pain Stated complaint: sharp pain right side chest Time Seen by Provider: 12/31/22 14:25 Source: patient and RN notes reviewed Mode of arrival: ambulatory Limitations: no limitations History of Present Illness HPI narrative: Patient presents today complaining of 3 day history of intermittent right-sided anterior chest pain that is sharp in nature. Pain increases with movement or deep breath. Pain is intermittent and is present while patient is awake during the night, but is resolved when she wakes up in the morning after sleeping. Denies shortness of breath, abdominal pain, sweats or chills, nausea or vomiting, numbness or tingling, recent illness. She currently rates her pain 07/12 and has tried no [id number] interventions prior to arrival. Related Data Home Medications Medication Instructions Recorded Confirmed ergocalciferol (vitamin D2) 1,250 50,000 unit PO WEEKLY 07/23/21 12/31/22 mcg (50,000 unit) capsule omeprazole 40 mg capsule,delayed 40 mg PO HS 07/23/21 12/31/22 release vit no.95-ferrous 1 tablet PO DAILY 07/23/21 12/31/22 fumarate 28 mg-folic acid 800 mcg tablet () aripiprazole 5 mg tablet mg 12/31/22 bupropion HCl 150 mg 24 hr tablet, 150 mg PO DAILY 12/31/22 extended release cariprazine 1.5 mg capsule 1.5 mg PO DAILY 12/31/22 12/31/22 (Vraylar) metformin 500 mg tablet,extended 500 mg PO BID 12/31/22 12/31/22 release 24 hr nebivolol 2.5 mg tablet 2.5 mg PO DIRECTED 12/31/22 12/31/22 norethindrone 1 mg-ethinyl 1 tablet PO DAILY 12/31/22 12/31/22 estradiol 10 mcg (24)-iron 10 mcg(2) tablet (Lo Loestrin Fe) spironolactone 100 mg tablet 100 mg PO BID 12/31/22 12/31/22 Allergies Allergy/AdvReac Type Severity Reaction Status Date / Time No Known Allergies Allergy Verified 12/31/22 13:34 Review of Systems Review of Systems: CONSTITUTIONAL: Denies body aches, fever, chills, or sweats. EYES: Denies visual changes, redness, or discharge. ENT: Denies rhinorrhea, congestion, sore throat, or otalgia. CARDIOVASCULAR: Denies palpitations, or edema.+ chest pain RESPIRATORY: Denies cough or dyspnea. GASTROINTESTINAL: Denies abdominal pain, nausea, vomiting, or diarrhea. GENITOURINARY: Denies dysuria or hematuria. SKIN: Denies rash, itching, or wounds. MUSCULOSKELETAL: Denies back pain, joint pain, or myalgia. NEUROLOGIC: Denies headache, numbness, tingling, or weakness. PSYCH: Denies depression or anxiety. 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 Please see nursing chart for further information. There is no relevant family history pertinent to the presenting complaint Exam Narrative: GENERAL: Well-appearing, well-nourished, and in no acute distress. HEAD: Normocephalic, atraumatic. EYES: EOMI. No redness or drainage. Conjunctivae normal. ENT: Mucous membranes pink and moist. NECK: Normal AROM. CHEST: No respiratory distress. Clear to auscultation. HEART: Regular rate and rhythm. No murmur appreciated. Normal peripheral pulses. Small area of point tenderness to the right mid anterior ribs. No crepitus noted. No edema or erythema noted. ABDOMEN: Soft, nontender, nondistended, normal active bowel sounds. EXTREMITIES: Normal range of motion. No edema. SKIN: Warm,
== END 2022-12-31 14:51 | disposition home or self-care (01) ==
PROVIDERS: Emergency Provider Nurse Practitioner; PCP Physician Assistant
DX: R07.89 Other chest pain (principal); Z79.899 Other long term (current) drug therapy
CPT/HCPCS: 99213; G0463

== ENCOUNTER → 2023-12-28 15:44 | Outpatient (CLI) | payer OTHER, SELFPAY ==
--- NOTE | ~2023-12-28 | XR_ITS ---
XR foot LT min 3V Ordering provider: Jacinda Prieto, SHERLY History: . LATERAL LT FOOT PAIN, DROPPED BOX ON LT FOOT . Comparison: None FINDINGS: BONES: No acute fracture or dislocation. Possible fracture in the sesamoid bone on the plantar aspect of the big toe. JOINT SPACES: Normal. No tarsal coalition. SOFT TISSUES: Plantar Soft tissue swelling seen in the area of the proximal toe. IMPRESSION: Highly suggestive fracture in the sesamoid bone plantar aspect of the big toe. Otherwise, No acute os seous abnormality left foot. Reviewed, dictated and finalized at location A. IMPRESSION: Highly suggestive fracture in the sesamoid bone plantar aspect of the big toe. Otherwise, No acute osseous abnormality left foot.
== END ==
PROVIDERS: PCP Physician Assistant; Visit Provider Physician Assistant
DX: M79.672 Pain in left foot (principal); R93.6 Abnormal findings on diagnostic imaging of limbs
CPT/HCPCS: 73630